=== PATIENT | female | born 1970 | race Caucasian/White ===

== ENCOUNTER 2024-07-03 09:26 | Outpatient (CLI) | payer MEDICARE, SELFPAY ==
[2024-07-03 09:48] LABS: Basophils Absolute Auto 0.07 K/mm3 (0.00-0.10); Basophils Percent Auto 0.6 % (0.0-1.0); Eosinophils Absolute Auto 0.36 K/mm3 (0.02-0.50); Hematocrit 46.2 % (35.0-49.0); Hemoglobin 15.9 g/dL (12.0-15.0); Immature Granulocyte Absolute 0.04 K/mm3 (0.00-0.00); Immature Granulocyte Percent A 0.3 % (0.0-0.0); Lymphocytes Absolute Auto 1.95 K/mm3 (1.10-4.50); Lymphocytes Percent Auto 16.2 % (18.0-42.0); Mean Corpuscular HGB Conc 34.4 g/dL (32-36); Mean Corpuscular Hemoglobin 28.6 pg (27.0-31.0); Mean Corpuscular Volume 83.2 fL (78.0-102.0); Mean Platelet Volume 10.3 fl (9.2-11.8); Monocytes Absolute Auto 0.48 K/mm3 (0.10-0.90); Neutrophils Absolute Auto 9.12 K/mm3 (1.70-7.20); Neutrophils Percent Auto 75.9 % (50.0-70.0); Platelet Count Result 204 K/mm3 (150-420); Red Blood Count 5.55 M/mm3 (4.20-5.40); Red Cell Distribution Width 14.2 % (11.6-14.4)
== END 2024-07-03 09:27 | disposition home or self-care (01) ==
LOC: CHSLAB 09:32
PROVIDERS: PCP Family Medicine; Visit Provider Physician Assistant
DX: D72.829 Elevated white blood cell count, unspecified (principal)
CPT/HCPCS: 36415; 85025

== ENCOUNTER 2024-08-17 14:13 | Outpatient (CLI) | payer MEDICARE, SELFPAY ==
[2024-08-17 14:35] LABS: Basophils Absolute Auto 0.1 K/mm3 (0.0-0.1); Basophils Percent Auto 0.6 % (0.2-1.2); Eosinophils Absolute Auto 0.1 K/mm3 (0-0.3); Eosinophils Percent Auto 1.2 % (0-4.4); Hematocrit 43.7 % (37.0-47.0); Hemoglobin 14.4 g/dL (12.0-15.0); Immature Granulocyte Absolute 0.02 K/mm3 (0.00-0.031); Immature Granulocyte Percent A 0.2 % (0-0.5); Lymphocytes Percent Auto 12.4 % (18.3-44.2); Mean Corpuscular Hemoglobin 28.2 pg (26-34); Mean Corpuscular Volume 85.7 fl (80-100); Mean Platelet Volume 10.3 fl (7.4-10.4); Monocytes Absolute Auto 0.9 K/mm3 (0.1-0.6); Monocytes Percent Auto 9.6 % (2.6-8.5); Neutrophils Absolute Auto 6.7 K/mm3 (1.3-6.7); Platelet Count Result 163 k/mm3 (150-375); Red Cell Distribution Width 14.2 % (11.5-14.5); White Blood Count 8.8 K/mm3 (4.5-10.0)
[2024-08-17 16:51] LABS: Alanine Aminotransferase 14 U/L (6-35); Albumin Level 4.2 g/dL (3.5-5.1); Alkaline Phosphatase 91 U/L (38-126); Anion Gap 10 mmol/L (4-12); Aspartate Amino Transferase 24 U/L (14-36); Bilirubin,Total 0.4 mg/dL (0.2-1.3); Blood Urea Nitrogen 32 mg/dL (7-17); CRP 1.2 mg/dL (<1.0); Calcium 9.3 mg/dL (8.4-10.2); Carbon Dioxide 27 mmol/L (22-30); Chloride 98 mmol/L (98-107); Estimated Glomerular Filt Rate 58; Glucose 96 mg/dL (65-110); Potassium 3.2 mmol/L (3.4-5.0); Sodium 135 mmol/L (137-145)
[2024-08-17 17:20] LABS: Erythrocyte Sedimentation Rate 5 mm/hr (0-20)
[2024-08-22 14:18] LABS: Block/Specimen ID *NA; Clinical Indication ERYTHROCYTOSIS; JAK2 V617F Mutation NOT DETECTED (NOT DETECTED); Specimen Source BLOOD
[2024-08-27 12:47] LABS: Erythropoietin (EPO) 15.5 mIU/mL (2.6-18.5)
== END 2024-08-17 14:14 | disposition home or self-care (01) ==
PROVIDERS: PCP Family Medicine; Visit Provider Internal Medicine Hematology & Oncology
DX: D72.829 Elevated white blood cell count, unspecified (principal); D75.1 Secondary polycythemia
CPT/HCPCS: 36415; 80053; 81270; 82668; 85025; 85652; 86140; 88184

== ENCOUNTER 2024-11-25 08:17 | Emergency (ER) | payer MEDICARE, SELFPAY ==
[2024-11-25 08:17] VITALS: BP 166/101; PULSE 80; RESP 18; TEMP 36.3; O2SAT 97
--- NOTE | 2024-11-25 08:29 | ED_ITS ---
HPI - Headache General Chief Complaint: Headache Stated Complaint: headache Time Seen by Provider: 11/25/24 08:18 Source: patient Mode of arrival: ambulatory Limitations: no limitations History of Present Illness HPI Narrative: Patient is a 54-year-old female with a headache and sinus pain and pressure. She has been not feeling well for 3 days. The headache is the entire head. She has a prior history of headaches in the past. her blood pressure is noted to be elevated but we will monitor and see if that is the cause. MD elicited complaint: headache and migraine Pertinent past history: hypertension ( Prior diagnosis and off meds at this time) Onset (ago): day(s) (3) Onset description: gradually Location: generalized Severity: moderate Pain scale (0-10): 5 Quality & Timing: aching and throbbing Exacerbating factors: none Relieving factors: nothing Context: other ( Patient has sinus pain and pressure and associated headache at the same time) Associated symptoms: malaise Treatments prior to arrival: acetaminophen Related Data Allergies Allergy/AdvReac Type Severity Reaction Status Date / Time aspirin Allergy Unknown Verified 11/25/24 08:31 ciprofloxacin (From Cipro) Allergy unknown Verified 11/25/24 08:31 morphine Allergy Unknown Verified 11/25/24 08:31 Review of Systems Review of Systems: All systems reviewed & are unremarkable except as noted in HPI and below Constitutional: Constitutional: Reports no additional constitutional complaints Eyes: Eyes: Reports no additional eye complaints ENT: Reports system reviewed and no additional complaints, except as documented Cardiovascular: Cardiovascular: Reports no additional cardiovascular complaints Respiratory: Respiratory: Reports no additional respiratory complaints Gastrointestinal: Gastrointestinal: Reports no additional gastrointestinal complaints Genitourinary: Genitourinary: Reports no additional female genitourinary complaints Musculoskeletal: Musculoskeletal: Reports no additional musculoskeletal complaints Integumentary/Breasts: Skin/Breast: Reports system reviewed and no additional complaints, except as docu Neurologic: Reports system reviewed and no additional complaints, except as documented Psychiatric: Psychiatric: Reports no additional psychiatric complaints Endocrine: Endocrine: Reports no additional endocrine complaints Hematologic/Lymphatic: Hematologic/Lymphatic: Reports no additional hematologic/lymphatic complaints Allergic/Immunologic: Allergic/Immunologic: Reports no additional allergic/immunologic complaints Exam Const: General: healthy appearing Nutritional Appearance: well nourished Orientation/consciousness: patient oriented x3 Limitations: no limitations HENMT: Head: normal to inspection Ears: external ears normal Face/Nose/Sinus: Normal external nose present Other: tender bilateral maxillary and frontal sinuses to palpation with apprehension sign Eyes: Conjunctivae: conjunctivae normal Pupils: Equal, round and reactive pupils present EOM: EOMs intact bilaterally Direct Ophthalmoscopy: no photophobia Neck: Neck: normal visual inspection Chest: Chest palpation & inspection: normal inspection of the chest Resp: Effort & Inspection: normal respiratory effort and not labored Auscultation: clear to auscultation bilaterally and no crackles Cardio: Rate: regular rate Rhythm: regular rhythm Heart sounds: no murmurs GI: Inspection: non-distended GI Palp: Yes Soft to palpation and No Tenderness to palpation present (GI) Auscultation: normal bowel sounds : General: Yes bladder normal to palpation Back/Spine/Pelvis: Back: no CVA tenderness Cervical Spine: collar present Skin: General skin exam: normal color Rashes: no rashes Wounds: no wounds Neuro: General: patient oriented x3 Cranial nerves: Yes Nystagmus not present Speech: normal speech Gait exam (Neuro): Normal gait present Extrem: General: normal to inspection Psych: Mental Status: mental status grossly normal Affect: normal affect Attitude: cooperative Course Vital Signs Vital signs: Vital Signs Temperature 36.3 C L 11/25/24 08:17 Pulse Rate 80 11/25/24 08:17 Respiratory Rate 18 11/25/24 08:17 Blood Pressure 166/101 H 11/25/24 08:17 Pulse Oximetry 97 11/25/24 08:17 Oxygen Delivery Room Air 11/25/24 08:17 Temperature 36.3 C L 11/25/24 08:17 Pulse Rate 80 11/25/24 08:17 Respiratory Rate 18 11/25/24 08:17 Blood Pressure 166/101 H 11/25/24 08:17 Pulse Oximetry 97 11/25/24 08:17 Oxygen Delivery Room Air 11/25/24 08:17 MDM - Headache MDM Narrative Medical decision making narrative: patient is a 54-year-old female with him headache and sinus infection appearance. We will go ahead and do Augmentin and give her shot of Toradol at this time. I will add prednisone. Discharge Plan Discharge Clinical Impression: Sinusitis Qualifiers: Sinusitis location: unspecified location Chronicity: acute Recurrence: non- recurrent Qualified Code(s): J01.90 - Acute sinusitis, unspecified Cephalalgia Qualifiers: Headache type: unspecified Headache chronicity pattern: acute headache Intractability: not intractable Qualified Code(s): R51.9 - Headache, unspecified Patient Disposition: Home, Self-Care Condition: Stable Instructions: Antibiotic Form, Sinusitis (ED), Acute Headache (DC) Patient Language: Sinhala Prescriptions: New amoxicillin-pot clavulanate 875-125 mg tablet 1 tablet PO BID 10 Days Qty: 20 0RF prednisone 20 mg tablet 40 mg PO DAILY 3 Days Qty: 6 0RF Follow-up/Referrals: Sekou,MD Crescencio [Primary Care Provider] - Time of Disposition: 08:43
[2024-11-25 08:46] VITALS: BP 140/95; O2SAT 96
[2024-11-25] MEDS: AMOXICILLIN/CLAVULANATE K 875-125 MG TAB 1 TABLET PO (08:53)
[2024-11-25] MEDS: predniSONE 20 MG TABLET 40 MG PO (08:53)
[2024-11-25] MEDS: KETOROLAC (*BKC) 60 MG/2 ML VIAL IM (08:53)
[2024-11-25 09:01] VITALS: BP 160/93; O2SAT 95
[2024-11-25 09:10] VITALS: BP 151/95; PULSE 74; RESP 18; O2SAT 98
--- OUTSIDE RECORDS SUMMARY | 2024-12-02 03:39 | XMS_ITS | Clinical Summary ---
Author Organization [facility] Address [address] [facility] [place] [address] Care Team Providers Care Registrar Nurses' Registry Name Role Phone Crescencio Sapp MD Primary Care Provider Allergies Active Allergy Reactions Criticality Noted Date Comments Aspirin Unknown 08/17/2024 Ciprofloxacin Unknown 08/17/2024 Morphine Hcl Unknown 08/17/2024 Medications Medication Sig Dispensed Refills Start Date End Date Status albuterol (PROVENTIL,VENTOLIN) 0.63 mg/3 mL Solution for Nebulization Take 0.63 mg by inhalation one time only. Active ALPRAZolam (XANAX) 0.5 mg tablet Take 0.5 mg by mouth nightly as needed for Anxiety. Active Active Problems No known active problems Encounters Date Type Department Care Team Description 11/10/2024 External Device Data [facility] ABSTRACTION Provider, Abstract 09/23/2024 External Device Data [facility] ABSTRACTION Provider, Abstract 09/16/2024 3:45 PM CDT Office Visit [facility] Oncology and Hematology - [place] [address] [facility] [address] [address] Pedro Luis Martinez MD Leukocytosis, unspecified type (Primary Dx); Erythrocytosis 09/08/2024 External Device Data [facility] ABSTRACTION Provider, Abstract from Last 3 Months Family History Medical History Relation Name Comments No Known Problems Brother 1 No Known Problems Brother 2 No Known Problems Brother 3 Heart Disease Father Diabetes Mother Heart Disease Mother No Known Problems Son Relation Name Status Comments Brother 1 Alive Brother 2 Alive Brother 3 Father Mother Son Social History Tobacco Use Types Packs/Day Years Used Date Smoking Tobacco: Every Day Cigarettes 0.5 40.3 Started: 08/17/1984 Smokeless Tobacco: Never Tobacco Cessation:Ready to Q uit: Not Asked; Counseling Given: Not Answered Alcohol Use Standard Drinks/Week Comments Yes 0 (1 standard drink = 0.6 oz pur e alcohol) Socially Sex and Gender Information Value Date Recorded Sex Assigned at Not on file Gender Identity Not on file Sexual Orientation Not on file Last Filed Vital Signs Vital Sign Reading Time Taken Comments Blood Pressure 149/95 09/16/2024 3:15 PM CDT Pulse 84 09/16/2024 3:15 PM CDT Temperature 36.9 ??C (98.4 ??F) 09/16/2024 3:15 PM CD T Respiratory Rate 16 09/16/2024 3:15 PM CDT Oxygen Saturation 97% 09/16/2024 3:15 PM CDT Inhaled Oxygen Concentration - - Weight 72.1 kg (159 lb) 09/16/2024 3:15 PM CDT Height 162.6 cm (5' 4 ) 08/17/2024 1:16 PM CDT Body Mass Index 27.29 08/17/2024 1:16 PM CDT Plan of Treatment Health Maintenance Due Date Last Done Comments Pre-Diabetes and Diabetes Screening 1970 PNEUMOCOCCAL VACCINE 0-64 YEARS (1 of 2 - PCV) 977 DTAP/TDAP/TD VACCINES (1 - Tdap) 1990 HEPATITIS B VACCINES (1 of 3 - 19+ 3-dose series) 10/27 CERVICAL CANCER SCREENING 2001 BREAST CANCER SCREENING 2011 COLORECTAL SCREENING 2016 Colorectal Cancer Screening 2016 FIT-DNA Q 3 years 2016 FIT/FOBT Q 1 year 2016 Flex Sig/CT Colonography Q 5 years 2016 Lung Cancer Screening 2021 ZOSTER VACCINE (1 of 2) 2021 INFLUENZA VACCINE (#1) 2024 Care Teams Registrar Nurses' Registry Relationship Specialty Start Date End Date Crescencio Sapp MD [address] [place] [address] PCP - General Family Practice 09/16/24
--- OUTSIDE RECORDS SUMMARY | 2024-12-02 03:39 | XMS_ITS | Encounter Summary ---
Author Organization [facility] [employer] Address [address] [place] [address] Care Team Providers Care Yardage Caller Name Role Phone Unavailable Primary Care Provider Unavailabl e Encounter Details Date Type Department Care Team (Late st Contact Info) Description 08/18/2024 Orders Only [facility] Oncology and Hematology - [place] [address] [facility] [address] [place] [address] Pedro Luis Martinez MD [address] [facility] [address] [place] [address] Social History Tobacco Use Types Packs/Day Years Used Date Smoking Tobacco: Former Cigarettes 0.5 40.3 S tarted: 08/17/1984 Smokeless Tobacco: Never Alcohol Use Standard Drinks/Week Comments Yes 0 (1 standard drink = 0.6 oz pur e alcohol) Socially Sex and Gender Information Value Date Recorded Sex Assigned at Not on file Gender Identity Not on file Sexual Orientation Not on file documented as of this encounter Plan of Treatment Not on file documented as of this encounter Procedures Procedure Name Priority Date/Time Associated Diagnosis Comments COMPREHENSIVE METABOLIC PANEL Routine 08/17/2024 11:59 AM CDT CBC WITH AUTODIFFERENTIAL Routine 2023 11:02 AM CDT documented in this encounter Results * COMPREHENSIVE METABOLIC PANEL (08/17/2024 11:59 AM CDT) Blood Pedro Luis Martinez MD CHEMISTRY ORDERABLES * CBC WITH AUTODIFFERENTIAL (08/17/2024 11:02 AM CDT) Blood Pedro Luis Martinez MD HEMATOLOGY ORDERABLE S documented in this encounter Visit Diagnoses Not on filedocumented in this encounter
--- OUTSIDE RECORDS SUMMARY | 2024-12-02 03:39 | XMS_ITS | Encounter Summary ---
Author Organization [facility] [employer] Address [address] [place] [address] Care Team Providers Care Mental Health Tech Name Role Phone Crescencio Sapp MD Primary Care Provider [phone] Reason for Visit * Reason Comments Follow Up Encounter Details Date Type Department Care Team ([facility] st Contact Info) Description 09/16/2024 3:45 PM CDT Office Visit [facility] Oncology and Hematology - [place] [address] [facility] [address] [place] [address] Pedro Luis Martinez MD [address] [facility] [address] [place] [address] Leukocytosis, unspecified type (Primary Dx); Erythrocytosis Social History Tobacco Use Types Packs/Day Years [...] on file documented as of this encounter Last Filed Vital Signs Vital Sign Reading Time Taken Comments Blood Pressure 149/95 09/16/2024 3:15 PM CDT Pulse 84 09/16/2024 3:15 PM CDT Temperature 36.9 ??C (98.4 ??F) 09/16/2024 3:15 PM CD T Respiratory Rate 16 09/16/2024 3:15 PM CDT Oxygen Saturation 97% 09/16/2024 3:15 PM CDT Inhaled Oxygen Concentration - - Weight 72.1 kg (159 lb) 09/16/2024 3:15 PM CDT Height - - Body Mass Index 27.29 08/17/2024 1:16 PM CDT documented in this encounter Progress Notes * Pedro Luis Martinez MD - 09/16/2024 5:33 PM CDT HEMATOLOGY / ONCOLOGY PROGRESS NOTE Patient Identification: Name: Arlen Craig Age: 53 y.o. Sex: female : 1970 DIAGNOSIS Leukocytosis and erythrocytosis CURRENT TREATMENT Expectant TREATMENT HISTORY SUBJECTIVE Patient came to the office for follow-up visit. She denies any night sweats fever chills and weightloss. Denies any chest pain and shortness of breath. No other new complaints. Review of system Constitutional: Patient did not mention fevers, sweats, fatigue, malaise, weight loss HEENT: Patient did not mention sinus congestion, hearing or vision problems Respiratory: Patient did not mention cough, dyspnea, wheeze Cardiovascular: Patient did not mention chest pain, exertional chest pressure/discomfort, nausea, syncope, shortness of breath GI: Patient did not mention constipation, diarrhea, dsyphagia, reflux symptoms, vomiting, melena : Patient did not mention dysuria, frequency, incontinence, urgency Integumentary system: no lymphadenopathy, sweats, flushing Musculoskeletal: Patient not mention: myalgia, arthralgia Neurological: Patient did not mention blurry or disturbed vision, numbness/weakness, dizziness Skin: No lumps, bumps or rashes. Objective: Vital signs in last 24 hours: As per nursing note Exam: General appearance: alert, cooperative, no distress, appears stated age Head: normocephalic, without obvious abnormality, atraumatic Eyes: conjunctivae/corneas clear, EOM's intact Ears: normal external ear canals AU Nose: Nares normal. Septum midline. Mucosa normal. No drainage or sinus tenderness Throat: Lips, mucosa, and tongue normal. Teeth and gums normal Neck: supple, symmetrical, trachea midline. Lungs: clear to auscultation bilaterally Heart: regular rate and rhythm, S1, S2 normal, no murmur, click, rub or gallop Abdomen: soft, non-tender. Bowel sounds normal. No masses, No organomegaly Extremities: extremities normal, atraumatic, no cyanosis or edema Skin: Skin color, texture, turgor normal. No rashes or lesions Lymph nodes: No lymphadenopathy Neuro: No obvious focal deficit [facility] Labs from August 17 showed C-reactive protein 1.2 WBC 8.8 hemoglobin 14.4 hematocrit 43.7 platelet 163,000 sedimentation rate 5 erythropoietin level 15.5 JAK2 mutation not detected @IMAGEIMP@ Assessment: Plan: There are no problems to display for this patient. Reactive leukocytosis. Flow cytometric analysis showed no abnormalities. C- reactive protein was slightly elevated. WBC count now normal. No further workup is needed. 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 Hematocrit and hemoglobin stable. Patient is allergic to aspirin. I recommended smoking cessation regular exercise and weight loss. No need for phlebotomy. COPD. Patient will follow-up with the primary care physician. Follow-up with us on as-needed basis. ? TOBACCO COUNSELING She was counseled to discontinue tobacco/nicotine use. 09/16/2024 Pedro Luis Martinez MD documented in this encounter Plan of Treatment Not on file documented as of this encounter Visit Diagnoses Diagnosis Leukocytosis, unspecified type- Primary Erythrocytosis Reserved for inherently not codable concepts WITHOUT codable children documented in this encounter Care Teams Mental Health Tech Relationship Specialty Start Date End Date Crescencio Sapp MD [address] [place] [phone] PCP - General Family Practice 09/16/24 documented as of this encounter
--- OUTSIDE RECORDS SUMMARY | 2024-12-02 03:39 | XMS_ITS | Encounter Summary ---
Author Organization [facility] [employer] Address [address] [place] [address] Care Team Providers Care Gyroscopic Instrument Mechanic Name Role Phone Unavailable Primary Care Provider Unavailabl e Encounter Details Date Type Department Care Team (Late st Contact Info) Description 08/24/2024 Orders Only [facility] Oncology and Hematology - [place] [address] [facility] [address] [place] [address] Pedro Luis Martinez MD [address] [facility] [address] [place] [address] Social History Tobacco Use Types [...] Procedure Name Priority Date/Time Associated Diagnosis Comments JAK2 EXON 12 MUTATION ANALYSIS Routine 08/24/2024 3:40 PM CDT documented in this encounter Results * JAK2 EXON 12 MUTATION ANALYSIS (08/24/2024 3:40 PM CDT) Blood Pedro Luis Martinez MD HEMATOLOGY ORDERABLE S COM documented in this encounter Visit Diagnoses Not on filedocumented in this encounter
--- OUTSIDE RECORDS SUMMARY | 2024-12-02 03:39 | XMS_ITS | Encounter Summary ---
Author Organization [employer] Address [address] [place] [address] Care Team Providers Care Ornament Maker Hand Name Role Phone Unavailable Primary Care Provider Unavailabl e Encounter Details Date Type Department Care Team (Late st Contact Info) Description 08/18/2024 External Device Data [facility] ABSTRACTION Provider, Abstract NO ADDRESS ON FILE Social History Tobacco Use Types Packs/Day Years [...] documented as of this encounter Visit Diagnoses Not on filedocumented in this encounter
--- OUTSIDE RECORDS SUMMARY | 2024-12-02 03:39 | XMS_ITS | Encounter Summary ---
Author Organization [facility] [employer] Address [address] [place] [address] Care Team Providers Care Counter Manager Name Role Phone Unavailable Primary Care Provider Unavailabl e Encounter Details Date Type Department Care Team (Late st Contact Info) Description 08/21/2024 Abstract [facility] Oncology and Hematology - [place] [address] [facility] [address] [place] [address] Pedro Luis Martinez MD [address] [facility] [address] [place] [address] Social History Tobacco Use Types [...]
--- OUTSIDE RECORDS SUMMARY | 2024-12-02 03:39 | XMS_ITS | Encounter Summary ---
Author Organization [facility] Address [address] [place] [address] Care Team Providers Care Ripsaw Operator Name Role Phone Crescencio Sapp MD Primary Care Provider Encounter Details Date Type Department Care Team (Late st Contact Info) Description 11/10/2024 External Device Data [facility] ABSTRACTION Provider, Abstract NO ADDRESS ON FILE Social History Tobacco Use Types Packs/Day Years Used Date Smoking Tobacco: Every Day Cigarettes 0.5 40.3 Started: 08/17/1984 Smokeless Tobacco: Never Alcohol Use Standard [...] Diagnoses Not on filedocumented in this encounter Care Teams Ripsaw Operator Relationship Specialty Start Date End Date Crescencio Sapp MD [address] [place] [address] PCP - General Family Practice 09/16/24 documented as of this encounter
--- OUTSIDE RECORDS SUMMARY | 2024-12-02 03:39 | XMS_ITS | Encounter Summary ---
Author Organization [employer] Address [address] [place] [address] Care Team Providers Care Vehicle Body Builder Name Role Phone Unavailable Primary Care Provider [...]
--- OUTSIDE RECORDS SUMMARY | 2024-12-02 03:39 | XMS_ITS | Encounter Summary ---
Author Organization [employer] Address [address] [place] [address] Care Team Providers Care Tire Duster Name Role Phone Unavailable Primary Care Provider Unavailabl e Encounter Details Date Type Department Care Team (Late st Contact Info) Description 09/08/2024 External Device Data [facility] ABSTRACTION Provider, [...]
--- OUTSIDE RECORDS SUMMARY | 2024-12-02 03:39 | XMS_ITS | Encounter Summary ---
Author Organization [facility] Address [address] [place] [address] Care Team Providers Care Airport Security Screener Name Role Phone Unavailable Primary Care Provider Unavailabl e Reason for Referral * Laboratory Services (Routine) - Closed Specialty Diagnoses / Procedures Referred By Contac t Referred To Contact Diagnoses Erythrocytosis Procedures JAK2 MUTATION Pedro Luis Martinez MD [address] [facility] [employer] [employer] [facility] [employer] [address] [place] [phone] Referral ID Status Reason Start Date Expiration Date Visits Re quested Visits Authorized [id number] Closed 08/17/2024 09/17/2025 1 1 Reason for Visit * Reason Comments Establish Care Encounter Details Date Type Department Care Team (Late st Contact Info) Description 08/17/2024 1:30 PM CDT Office Visit [facility] Oncology and Hematology - [place] [address] [place] [address] [address] Pedro Luis Martinez MD [facility] [employer] [address] [place] [id number] Leukocytosis, unspecified type (Primary Dx); Erythrocytosis Social History Tobacco Use Types Packs/Day Years Used Date Smoking Tobacco: Former Cigarettes 0.5 40.3 S tarted: 08/17/1984 Smokeless Tobacco: Never Tobacco Cessation:Counseling Given: Not Answered Alcohol Use Standard Drinks/Week Comments Yes 0 (1 standard drink = 0.6 oz pur e alcohol) Socially Sex and Gender Information Value Date Recorded Sex Assigned at Not on file Gender Identity Not on file Sexual Orientation Not on file documented as of this encounter Last Filed Vital Signs Vital Sign Reading Time Taken Comments Blood Pressure 145/83 08/17/2024 1:22 PM CDT Pulse 81 08/17/2024 1:16 PM CDT Temperature 36.8 ??C (98.2 ??F) 08/17/2024 1:16 PM CD T Respiratory Rate 15 08/17/2024 1:16 PM CDT Oxygen Saturation 95% 08/17/2024 1:16 PM CDT Inhaled Oxygen Concentration - - Weight 72.7 kg (160 lb 3.2 oz) 08/17/2024 1:16 P M CDT Height 162.6 cm (5' 4 ) 08/17/2024 1:16 PM CDT Body Mass Index 27.5 08/17/2024 1:16 PM CDT documented in this encounter Progress Notes * Pedro Luis Martinez MD - 08/17/2024 4:34 PM CDT Hematology-oncology consult Note Requesting Physician Primary Care Physician No primary care provider on file. Problem list There is no problem list on file for this patient. Previous TREATMENT ? Measurable Disease ? Reason for Visit Arlen Craig is a 53 y.o. female who was referred for consultation for leukocytosis and erythrocytosis. History of present illness This is a pleasant 53-year-old female with history of COPD anxiety and smoking less than 1 pack/day for 25 years duration. She has lost almost 130 pound weight in last 9 months duration with diet and exercise. She has seen health nurse in the past for elevated WBC count. She denies any arthritis and rash. Denies any diarrhea and constipation. No bleeding and bruising. She is allergic toaspirin. Her labs showed hemoglobin of 16.3 with hematocrit of 49.8 and WBC count of 13.6. She has no other new complaints including new lumps of the lymphadenopathy. Past Medical History Past Medical History: Diagnosis Date Emphysema of lung Hypertension Seizure disorder Surgical History Past Surgical History: Procedure Laterality Date HX CHOLECYSTECTOMY HX HERNIA REPAIR Medications Current Outpatient Medications Medication Sig Dispense Refill albuterol (PROVENTIL,VENTOLIN) 0.63 mg/3 mL Solution for Nebulization Take 0.63 mg by inhalation one time only. ALPRAZolam (XANAX) 0.5 mg tablet Take 0.5 mg by mouth nightly as needed for Anxiety. [DISCONTINUED] ALPRAZolam (XANAX) 0.25 mg tablet Take 0.25 mg by mouth nightly as needed for Anxiety. No current facility-administered medications for this visit. Allergies Allergies Allergen Reactions Aspirin Unknown Ciprofloxacin Unknown Morphine Hcl Unknown Immunizations: There is no immunization history on file for this patient. Family History Family History Problem Relation Name Age of Onset Heart Disease Father Heart Disease Mother Diabetes Mother No Known Problems Brother No Known Problems Brother No Known Problems Brother No Known Problems Son Social History Social History Tobacco Use Smoking status: Former Current packs/day: 0.50 Average packs/day: 0.5 packs/day for 40.0 years (20.0 ttl pk-yrs) Types: Cigarettes Start date: 08/17/1984 Smokeless tobacco: Never Substance Use Topics Alcohol use: Yes Comment: Socially Review of Systems Constitutional: Patient did not mention fever; no night sweats; no anorexia; no weight loss; no fatique NEENT: Patient did not mention headache; no change in vision; no change in hearing; no sore throat;no dysphagia Respiratory: Patient did not mention shortness of breath; no pleuritic chest pain; no cough; no hemoptysis Cardiac: Patient did not mention cardiac-like chest pain; no palpitations; no orthopnea; no PND; noDOE Breasts: Patient did not mention tenderness; no masses GI: Patient did not mention abdominal pain; no nausea; no vomiting; no diarrhea; no hematochezia; no melena : Patient did not mention dysuria; no frequency; no hesitancy; no hematuria BOAT LOADER HELPER: Musculosketetal: Patient did not mention bone pain; no arthralgia; no joint swelling; no myalgia; Skin: Patient did not mention pruritis; no rash; no petechiae; no ecchymoses Endocrine: Patient did not mention polydipsia; no polyuria; no unusual weight gain Neuro: Patient did not mention headache; no change in vision; no sensory changes; no muscle weakness; no confusion; no seizures Psych: Patient did not mention anxiety; no depression; Physical Exam Vitals: As per nursing note Constitutional: Well developed, well nourished, no acute distress, non-toxic appearance Teeth and gum. No signs of infection or swelling. Eyes: PERRL, conjunctiva normal HEENT: Atraumatic, external ears normal, nose normal, oropharynx moist, no pharyngeal exudates. no sinus tenderness Neck- normal range of motion, no tenderness, supple Respiratory: No respiratory distress, normal breath sounds, no rales, no wheezing Cardiovascular: Normal rate, normal rhythm, no murmurs, no gallops, no rubs GI: Soft, nondistended, normal bowel sounds, nontender, no splenomegaly, no hepatomegaly, no mass, no rebound, no guarding : No costovertebral angle tenderness Musculoskeletal: No edema, no tenderness, no deformities. Back- no tenderness Integument: Well hydrated, no rash, Digits and nails inspection normal Lymphatic: No lymphadenopathy noted Neurologic: Alert & oriented x 3, CN 2-12 normal, normal motor function, normal sensory function, no focal deficits noted Psychiatric: Speech and behavior appropriate ? labs No results found for this or any previous visit (from the past 24 hour(s)). Labs show WBC 13.6 hemoglobin 16.3 hematocrit 49.8 platelet 235,000 neutrophils 79% Pathology ? Imaging & Other Studies Performance Status? Assessment / Plan: ? Leukocytosis and erythrocytosis. Patient is a pleasant 53-year-old female with history ofsmoking and COPD along with anxiety. She has been dealing with leukocytosis and erythrocytosis for more than a year duration and has seen health nurse in the past. She denies any history of sleep apnea. She has lost 130 pound weight in last 9 months duration with diet and exercise. I discussed the differential diagnosis of erythrocytosis and leukocytosis with the patient. In her case it is most likely secondary to smoking and COPD. I have discussed the complication of erythrocytosis with the patient that include risk of thromboembolic events including stroke and heart attack. I will order theworkup that will include CBC with differential, CMP, C-reactive protein, sedimentation rate and flow cytometric analysis for leukemia panel. I will check JAK2 mutation testing as well. She is allergic to aspirin. Based on the results we will decide about phlebotomy to keep hematocrit less than 50. I have answered all the questions to patient satisfaction. COPD. She uses albuterol inhaler as needed. I have recommended smoking cessation. Anxiety. She is on Xanax. Thank you very much for allowing me to participate in Arlen Craig's evaluation and management. Please feel free to contact if I can be of any further assistance in your patient???s care requiring hematology or oncology evaluation. Sincerely, ? ? Pedro Luis Martinez M.D. cell TOBACCO COUNSELING She was counseled to discontinue tobacco/nicotine use. Pedro Luis Martinez MD ,08/17/2024 4:34 PM ? Total time spent 60 minutes, two third of the total time spent counseling patient [id number]. CC:? documented in this encounter Plan of Treatment Scheduled Orders Name Type Priority Associated Diagnoses Orde r Schedule CBC WITH DIFFERENTIAL Lab Stat Leukocytosis, unspecified type Expected: 08/17/2024, Expires: 08/17/2025 COMPREHENSIVE METABOLIC PANEL Lab Stat Leukocytosis, unspecified type Expected: 08/17/2024, Expires: 08/17/2025 C-REACTIVE PROTEIN Lab Routine Leukocytosis, unspecified type Expected: 08/17/2024, Expires: 08/17/2025 FLOW CYTOMETRY PANEL Lab Routine Leukocytosis, unspecified type Expected: 08/17/2024, Expires: 08/17/2025 SEDIMENTATION RATE Lab Routine Leukocytosis, unspecified type Expected: 08/17/2024, Expires: 08/17/2025 ERYTHROPOIETIN LEVEL Lab Routine Erythrocytosis Expected: 08/17/2024, Expires: 08/17/2025 JAK2 MUTATION Lab Routine Erythrocytosis Expected: 08/17/2024, Expires: 08/17/2025 documented as of this encounter Visit Diagnoses Diagnosis Leukocytosis, unspecified type- Primary Erythrocytosis Reserved for inherently not codable concepts WITHOUT codable children documented in this encounter
--- OUTSIDE RECORDS SUMMARY | 2024-12-02 03:39 | XMS_ITS | Encounter Summary ---
Author Organization [facility] Address [address] [place] [address] Care Team Providers Care Reference Assistant Name Role Phone Unavailable Primary Care Provider Unavailabl e Encounter Details Date Type Department Care Team (Late st Contact Info) Description 08/25/2024 External Device Data STL ABSTRACTION Provider, Abstract [...]
--- OUTSIDE RECORDS SUMMARY | 2024-12-02 03:39 | XMS_ITS | Encounter Summary ---
Author Organization [facility] Address [address] [place] [address] Care Team Providers Care Director Of Automation Name Role Phone Unavailable Primary Care Provider Unavailabl e Encounter Details Date Type Department Care Team (Late st Contact Info) Description 08/21/2024 Orders Only [facility] Oncology and Hematology - [place] [address] [facility] [address] [place] [address] Pedro Luis Martinez MD [address] [facility] [address] [place] [address] Social History Tobacco Use Types [...] Procedure Name Priority Date/Time Associated Diagnosis Comments FLOW CYTOMETRY REPORT Routine 08/18/2024 7:52 AM CDT documented in this encounter Results * FLOW CYTOMETRY REPORT (08/18/2024 7:52 AM CDT) Pedro Luis Martinez MD PATHOLOGY/CYTOLOGY O RDERABLES documented in this encounter Visit Diagnoses Not on filedocumented in this encounter
--- OUTSIDE RECORDS SUMMARY | 2024-12-02 03:39 | XMS_ITS | Encounter Summary ---
Author Organization [facility] Address [address] [place] [address] Care Team Providers Care Fruit Stuffer Name Role Phone Crescencio Sapp MD Primary Care Provider Encounter Details Date Type Department Care Team (Late st Contact Info) Description 09/23/2024 External Device Data STL ABSTRACTION Provider, [...] on filedocumented in this encounter Care Teams Fruit Stuffer Relationship Specialty Start Date End Date Crescencio Sapp MD [address] [place] [address] PCP - General Family Practice 09/16/24 documented as of this encounter
--- OUTSIDE RECORDS SUMMARY | 2024-12-02 03:39 | XMS_ITS | Encounter Summary ---
Author Organization [facility] Address [address] [place] [address] Care Team Providers Care Signal Wirer Name Role Phone Unavailable Primary Care Provider Unavailabl e Encounter Details Date Type Department Care Team (Late st Contact Info) Description 08/31/2024 Orders Only [facility] Oncology and Hematology - [place] [address] [facility] [address] [place] [address] Pedor Luis Martinez MD [address] [facility] [address] [place] [address] Social History Tobacco Use Types [...] Procedure Name Priority Date/Time Associated Diagnosis Comments ERYTHROPOIETIN LEVEL Routine 08/27/2024 11:28 AM CDT documented in this encounter Results * ERYTHROPOIETIN LEVEL (08/27/2024 11:28 AM CDT) Blood Pedro Luis Martinez MD CHEMISTRY ORDERABLES documented in this encounter Visit Diagnoses Not on filedocumented in this encounter
== END 2024-11-25 09:10 | disposition home or self-care (01) ==
LOC: CHSED 08:51
PROVIDERS: Emergency Provider Emergency Medicine; PCP Family Medicine
DX: J01.90 Acute sinusitis, unspecified (principal); R51.9 Headache, unspecified
CPT/HCPCS: 96372; 99283; A9270; J1885; J7512

== ENCOUNTER 2024-12-17 11:01 | Outpatient (CLI) | payer MEDICARE, SELFPAY ==
--- NOTE | ~2024-12-17 | XR_ITS ---
Thoracic spine: Clinical Indication: Back pain AP and lateral views were performed. No fracture is seen. There is normal alignment of the vertebrae. The intervertebral disc spaces appe ar normal. Paravertebral soft tissues appear normal. Impression: No significant abnormalities noted. Reviewed, dictated and finalized [place] [facility] [employer] Impression: No significant abnormalities noted.
--- NOTE | ~2024-12-17 | XR_ITS ---
Lumbosacral Spine: AP and lateral views Clinical History: Pain Findings: There are 6 apparent lumbar-type vertebral bodies. No fracture evident. There is grade 1 an terolisthesis of L4 over L5. There is advanced facet arthropathy at the lower lumbar spine. There is mild degenerative disc change at L4-L5. The remaining intervertebral disc spaces are preserved. The sacroiliac joints are normally outlined. Impression: Grade 1 anterolisthesis of L4 over L5 with probable 6 lumbar type vertebral bodies. Degenerative changes, as above. Reviewed, dictated and finalized at location M. FORCE CONSULTANT Impression: Grade 1 anterolisthesis of L4 over L5 with probable 6 lumbar type vertebral bod ies. Degenerative changes, as above.
== END 2024-12-17 11:02 | disposition home or self-care (01) ==
LOC: CHSIMG 11:03
PROVIDERS: PCP Family Medicine; Visit Provider Family Medicine
DX: M54.9 Dorsalgia, unspecified (principal); M43.17 Spondylolisthesis, lumbosacral region
CPT/HCPCS: 72072; 72100

== ENCOUNTER 2025-10-26 12:10 | Emergency (ER) | payer MEDICARE, SELFPAY ==
--- NOTE | ~2025-10-26 | XR_ITS ---
XR knee LT min 4V 10/26/2025 12:30 INDICATION: Left knee pain PROCEDURE: 4 views left knee COMPARISON: No prior studies for comparison. FINDINGS: Fracture, dislocation or subluxation is not identified. No significant joint effusion. The soft tissues appear within normal limits. No foreign bodies are identified. IMPRESSION: 1: NO ACUTE BONE OR JOINT ABNORMALITY IDENTIFIED. Reviewed, dictated and finalized at location I. INE ADJUSTER HELPER
[2025-10-26 12:10] VITALS: BP 181/91; PULSE 81; RESP 16; TEMP 36.6; O2SAT 98
--- NOTE | 2025-10-26 12:20 | PC.NURSE ---
ERP IS AWARE PATIENT DID NOT TAKE HER BLOOD PRESSURE MEDICATION THIS MORNING, NO NEW ORDERS, WILL CONTINUE TO MONITOR.
--- NOTE | 2025-10-26 12:33 | ED_ITS ---
HPI - Extremity Injury (Lower) General Chief Complaint: Extremity Injury, Lower Stated Complaint: Fall Time Seen by Provider: 10/26/25 12:17 Source: patient and family Mode of arrival: wheelchair Limitations: no limitations History of Present Illness HPI Narrative: 54-year-old with a history of hypertension presents to the ER with a complains of left knee pain. Patient states that she lost her balance and twisted her knee yesterday now pain in the left head and neck injuries. Is able to ambulate MD complaint: knee injury Onset (ago): day(s) (1) Type of Injury: unknown Place: home Severity: moderate Relieving factors: nothing Exacerbating factors: weight bearing Context: fall Other symptoms: none Related Data Allergies Allergy/AdvReac Type Severity Reaction Status Date / Time aspirin Allergy Unknown Verified 10/26/25 12:14 ciprofloxacin (From Cipro) Allergy unknown Verified 10/26/25 12:14 morphine Allergy Unknown Verified 10/26/25 12:14 Review of Systems Review of Systems: All systems reviewed & are unremarkable except as noted in HPI and below Constitutional: Constitutional: Reports no additional constitutional complaints Eyes: Eyes: Reports no additional eye complaints ENT: Reports system reviewed and no additional complaints, except as documented Cardiovascular: Cardiovascular: Reports no additional cardiovascular complaints Respiratory: Respiratory: Reports no additional respiratory complaints Gastrointestinal: Gastrointestinal: Reports no additional gastrointestinal complaints Musculoskeletal: Musculoskeletal: Reports as per HPI Integumentary/Breasts: Skin/Breast: Reports system reviewed and no additional complaints, except as docu Neurologic: Reports system reviewed and no additional complaints, except as documented Exam Narrative: GENERAL: Well-appearing, well-nourished, and in no acute distress. HEAD: Normocephalic, atraumatic. EYES: PERRLA and EOMI. ENT: Nares clear, no rhinorrhea or epistaxis. Mucous membranes moist. NECK: Supple. CHEST: Clear to auscultation. No respiratory distress. HEART: Regular rate and rhythm. No murmur heard. Normal peripheral pulses. EXTREMITIES: Normal range of motion. No edema. SKIN: Warm, dry, no rash. NEURO: No focal deficits. Alert and oriented x3. PSYCH: Normal mood and affect. Course Course Emergency Course: Notified patient about her x-ray findings advised continue to continue medication. Follow with the PMD as needed Vital Signs Vital signs: Vital Signs Temperature 36.6 C 10/26/25 12:10 Pulse Rate 81 10/26/25 12:10 Respiratory Rate 16 10/26/25 12:10 Blood Pressure 181/91 H 10/26/25 12:10 Pulse Oximetry 98 10/26/25 12:10 Oxygen Delivery Room Air 10/26/25 12:10 Temperature 36.6 C 10/26/25 12:10 Pulse Rate 81 10/26/25 12:10 Respiratory Rate 16 10/26/25 12:10 Blood Pressure 181/91 H 10/26/25 12:10 Pulse Oximetry 98 10/26/25 12:10 Oxygen Delivery Room Air 10/26/25 12:10 MDM Differential Diagnosis Differential Diagnosis: Knee sprain, internal derangement, fracture knee Imaging Data Radiologist's impression: ITS Impressions Knee X-Ray 10/26/25 12:36 IMPRESSION: 1: NO ACUTE BONE OR JOINT ABNORMALITY IDENTIFIED. ITS Impressions Knee X-Ray 10/26/25 12:36 IMPRESSION: 1: NO ACUTE BONE OR JOINT ABNORMALITY IDENTIFIED. Discharge Plan Discharge Clinical Impression: Left knee sprain Qualifiers: Encounter type: initial encounter Involved ligament of knee: unspecified ligament Qualified Code(s): S83.92XA - Sprain of unspecified site of left knee, initial encounter Patient Disposition: Home Condition: Stable Instructions: Antibiotic Form, Knee Sprain (ED) Additional Instructions: Continue the patient , apply ice. Follow-up with your primary doctor Patient Language: Croatian Prescriptions: No Action amoxicillin-pot clavulanate 875-125 mg tablet 1 tablet PO BID 10 Days Qty: 20 0RF prednisone 20 mg tablet 40 mg PO DAILY 3 Days Qty: 6 0RF Follow-up/Referrals: Sekou,MD Cresecncio [Primary Care Provider, Family Practice] Time of Disposition: 12:37
--- OUTSIDE RECORDS SUMMARY | 2025-10-26 12:57 | XMS_ITS | Clinical Summary ---
Author Organization [facility] Address [address] [place] [address] Care Team Providers Care Automotive Lube Technician Name Role Phone Crescencio Sapp MD Primary Care Provider [phone] Allergies Active Allergy Reactions Criticality Noted Date Comments Aspirin Unknown 08/17/2024 Ciprofloxacin Unknown 08/17/2024 Morphine Hcl Unknown 08/17/2024 Medications albuterol (PROVENTIL,VENTOL IN) 0.63 mg/3 mL Solution for Nebulization Take 0.63 mg by inhalation one time only. Active ALPRAZolam (XANAX) 0.5 mg tablet Take 0.5 mg by mouth nightly as needed for Anxiety. Active Active Problems No known active problems Family History Medical History Relation Name Comments [...] Date Smoking Tobacco: Every Day Cigarettes 0.5 41.2 Started: 08/17/1984 Smokeless Tobacco: Never Tobacco Cessation:Ready to Q uit: Not Asked; Counseling Given: Not Answered Alcohol Use Standard Drinks/Week Comments Yes 0 (1 standard drink = 0.6 oz pur e alcohol) Socially Comments Unknown Sex and Gender Information Value Date Recorded Sex Assigned at Not on file Legal Sex Female 10:13 PM CDT Gender Identity Not on file Sexual Orientation Not on file Last Filed Vital Signs Vital Sign Reading Time Taken Comments Blood Pressure 149/95 09/16/2024 3:15 PM CDT Pulse 84 09/16/2024 3:15 PM CDT Temperature 36.9 C (98.4 F) 09/16/2024 3:15 PM CDT Respiratory Rate 16 09/16/2024 3:15 PM CDT Oxygen Saturation 97% 09/16/2024 3:15 PM CDT Inhaled Oxygen Concentration - - Weight 72.1 kg (159 lb) 09/16/2024 3:15 PM CDT Height 162.6 cm (5' 4) 08/17/2024 1:16 PM CDT Body Mass Index 27.29 08/17/2024 1:16 PM CDT Plan of Treatment Health Maintenance Due Date Last Done Comments DTAP/TDAP/TD VACCINES (1 - Tdap) 1990 HEPATITIS B VACCINES (1 of 3 - 19+ 3-dose series) 10/27 HPV/Cotest (21-29) 1992 CERVICAL CANCER SCREENING 2001 HPV/Cotest (30-65) 2001 PAP SMEAR 2001 BREAST CANCER SCREENING 2011 COLORECTAL SCREENING 2016 Colorectal Cancer Screening 2016 FIT-DNA Q 3 years 2016 FIT/FOBT Q 1 year 2016 Flex Sig/CT Colonography Q 5 years 2016 ZOSTER VACCINE (1 of 2) 2021 INFLUENZA VACCINE (#1) 2025 Insurance MEDICAID [place] Care Teams Automotive Lube Technician Relationship Specialty Start Date End Date Crescencio Sapp MD [address] [place] [phone] PCP - General Family Practice 09/16/24
[2025-10-26 13:04] VITALS: BP 161/94; PULSE 78; RESP 16; O2SAT 94
== END 2025-10-26 13:04 | disposition home or self-care (01) ==
LOC: CHSED 12:47
PROVIDERS: Emergency Provider Family Medicine; PCP Family Medicine
DX: S83.92XA Sprain of unspecified site of left knee, initial encounter (principal); I10 Essential (primary) hypertension; X50.0XXA Overexertion from strenuous movement or load, initial encounter
CPT/HCPCS: 73564; 99283